=== PATIENT | female | born 1990 | race Asian ===

== ENCOUNTER 2019-06-08 12:08 | Emergency (ER) | payer OTHER ==
[~2019-06-08] VITALS: Ht 147.3 cm; Wt 50.9 kg
[2019-06-08 12:17] VITALS: BP 144/91
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
--- NOTE | 2019-06-08 13:19 | NUR ---
PT AMBULATED TO BED 11 AT THIS TIME
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
--- NOTE | 2019-06-08 13:52 | NUR ---
RECEIVED REPORT FROM CLAUS SHORE FOR TRANSFER OF CARE
--- NOTE | 2019-06-08 14:47 | NUR ---
Dr. Lange evaluating patient at bedside.
[2019-06-08 15:35] VITALS: BP 103/60
--- NOTE | 2019-06-08 15:35 | NUR ---
Patient discharged with v/s stable. Written and verbal after care instructions given and explained. Patient verbalized understanding. Ambulatory with steady gait. All questions addressed prior to discharge. Advised to follow up with PMD.
== END 2019-06-08 15:35 | disposition home or self-care (01) ==
LOC: MED 12:08
DX: M79.10 Myalgia, unspecified site (principal); R07.89 Other chest pain; V89.2XXA Person injured in unspecified motor-vehicle accident, traffic, initial encounter; Y93.89 Activity, other specified; Y92.89 Other specified places as the place of occurrence of the external cause; Y99.8 Other external cause status
CPT/HCPCS: 71045; 81025; 93005; 99283